=== PATIENT | male | born 1965 ===

== ENCOUNTER 2020-05-15 15:08 | Outpatient (REF) | payer OTHER, SELFPAY ==
--- NOTE | 2020-05-22 10:28 | MHC.AU.ANO ---
Adult Audiological Evaluation Date of Visit: 05/15/20 Reason for Appointment: Patient reports history of hearing difficulty and tinnitus in his right ear. Does patient feel they have a hearing loss?: Yes If Yes, Which Ear?: Right Ear When Was Hearing Difficulty First Noticed?: 1.5 years ago Has hearing been tested previously?: No Hearing Handicap Inventory: HHIE SCORE: 32 Based on HHIE score, patient has: Severe perceived hearing handicap Ear History: Ear Deformity: None Reported Recent Ear Drainage: None Reported Recent Ear Pain: None Reported Recent Ear Infections: None Reported Ear Infections in Childhood: None Reported History of Ear Wax Buildup: None Reported Previous Ear Surgery: None Reported Bothersome Tinnitus/Ringing/Noises in Ears: Right Ear Ear used on the phone: Both Ears Blocked/Full Sensation in Ear(s): None Reported History of occupational noise exposure?: Yes: [employer]- 36 years History: No Medical History: Medical History: Patient reports corrective surgery on his pinnae in 1972. Otoscopy: Right Ear: Unremarkable Left Ear: Unremarkable Tympanometry: Tympanometry performed due to: To assess integrity of the middle ear system Right Ear: Hypercompliant Middle Ear System (Type Ad) Left Ear: Hypercompliant Middle Ear System (Type Ad) Hearing Evaluation: Transducer(s) Used: Insert Earphones Method: Conventional Audiometry Stimuli Used: Pure Tones Right Ear: Description of Hearing: Mild to severe sensorineural hearing loss (with slight conductive component in low frequencies) Left Ear: Description of Hearing: Borderline-normal to moderately-severe sensorineural hearing loss (with slight conductive component in low frequencies) Speech Recognition Threshold (SRT): Method Used: Recorded Lists Stimuli Used: Spondee Words Right Ear: 45 dBHL Left Ear: 30 dBHL Word Discrimination: Method: Recorded Lists Word Lists Used: NU-6 Right Ear: 84% at 85 dBHL Left Ear: 96% at 70 dBHL Most Comfortable Level (MCL): Right Ear: 85 dBHL Left Ear: 70 dBHL Recommendations: Audiological re-evaluation in one year. A referral to Ear, Nose, and Throat is highly recommended to address newly diagnosed asymmetrical hearing loss. Patient does not feel he is ready for amplification at this time. Diagnosis: Primary Diagnosis: H90.3 Bilateral Sensorineural Hearing Loss Services Performed: Comprehensive Audiological Evaluation (CPT 48831), Tympanometry (CPT 74364) Signature: Provider: Francis Valladares, CCC-A
== END 2020-05-15 15:09 | disposition home or self-care (01) ==
LOC: HO.SH 15:08
PROVIDERS: Visit Provider Physician Assistant
DX: H90.3 Sensorineural hearing loss, bilateral (principal)
CPT/HCPCS: 92557; 92567